=== PATIENT | male | born 1930 | race Caucasian/White ===

== ENCOUNTER → 2017-01-28 | Outpatient (CLI) | payer OTHER, MEDICARE | LOC: CIMAGING 13:30 | PROVIDERS: ATTEND Emergency Medicine | DX: J06.9 Acute upper respiratory infection, unspecified (principal) | CPT/HCPCS: 71020-PO; G0463-PO ==

== ENCOUNTER 2017-02-15 08:37 | Emergency (ER) | payer OTHER, MEDICARE ==
[2017-02-15 08:46] VITALS: BP 158/94; PULSE 96; RESP 18; TEMP 97.3; O2SAT 97
--- NOTE | 2017-02-15 09:04 | EDPHY ---
H & P Time Seen by Provider: 02/15/17 08:42 HPI/ROS: This patient describes a cough this started about 3 weeks ago on around January 25. If he sought his primary care physician Dr. Landry on January 28 with a negative two view chest x-ray at that time diagnosed with URI and cough. However the cough has persisted become more frequent and intense and is not prevented sleep. He has a feeling of heaviness in his chest accompanying this for 2 weeks now that he describes as constant 5/10. He notes no exacerbating factors for this pain the describes as heavy and achy. He has had similar feelings in his chest with prior Respiratory ailments. He also describes associated fatigue. He initially had a sore throat accompanying his symptoms that has resolved. He has persistent coryza and some nasal congestion but no sinus pain. He drove himself a private vehicle for further evaluation of his persistent symptoms. ROS: No high fevers or chills. Positive fatigue no other constitutional symptoms. HEENT: As per HPI. No ear pain. Pulmonary: No pleuritic pain. No significant dyspnea. Cardiovascular: No heart palpitations. No leg swelling or calf pain. No worsening of the feeling of heaviness with exertion. No diaphoresis. GI: He had nausea earlier in the illness that has since resolved. Currently no GI complaints Integumentary: No skin rash Neuro: No complaints 7 point ROS is otherwise negative. Past Medical/Surgical History: GERD. Otherwise healthy. Family history is negative for premature coronary artery disease Social History: Lives with his . Smoking Status: Never smoked Physical Exam: Vital signs are normal with exception of mild hypertension 158/94. General Appearance: Pleasant 87-year-old male appears younger than his stated age. Alert, no distress. Eyes: Pupils equal and round no pallor or injection. ENT,: Nose-yellow discharge bilaterally. No sinus tenderness to percussion. Ears: Clear bilaterally. Mouth: Mucous membranes moist. Respiratory: Faint expiratory wheeze bilaterally with forced exhalation. None with tidal volume rest. Soft Rales at the left base clear with deep breaths. Cardiovascular: Regular rate and rhythm. No murmur gallop rub. No JVD. No peripheral edema or calf tenderness. Gastrointestinal: Abdomen is soft and nontender, no masses, bowel sounds normal. Neurological: GCS 15 Skin: Warm and dry, no rashes. Psychiatric: Mood and affect are normal. DIFFERENTIAL DIAGNOSIS: After history and physical exam differential diagnosis was considered for bronchitis, persistent URI with cough, doubt pneumonia, cardiac ischemic disease with early CHF Constitutional: Initial Vital Signs Temperature (C) 36.3 C 02/15/17 08:39 Heart Rate 96 02/15/17 08:39 Respiratory Rate 18 02/15/17 08:39 Blood Pressure 158/94 H 02/15/17 08:39 O2 Sat (%) 97 02/15/17 08:39 O2 Delivery Mode Room Air Allergies/Adverse Reactions: clarithromycin [From Biaxin] Allergy (Verified 02/15/17 08:46) Penicillins Allergy (Verified 02/15/17 08:47) Sulfa (Sulfonamide Antibiotics) Allergy (Verified 02/15/17 08:47) Home Medications: Medication Instructions Recorded Azithromycin [Zithromax] 250 mg PO DAILY #6 tab 02/15/17 Benzonatate [Tessalon Pearles (RX)] 100 - 200 mg PO TID PRN #20 cap 02/15/17 Levalbuterol Inhaler [Xopenex Hfa 2 puffs IH Q4 PRN #1 mdi 02/15/17 Inhaler] Zantac 02/15/17 MDM/Departure - MDM Diagnostics: 12 lead EKG performed at 9:04 a.m. indication chest heaviness rule out ischemia Sinus rhythm at 86 Intervals: P R of 180, QRS of 90, QTC of 460 [place]: P of 13, QRS of-55, T of 34degrees ST segments: Normal throughout Overall assessment sinus rhythm with left anterior fascicular block. No prior EKGs for comparison. ED Course/Re-evaluation: Discussion: Pleasant 87-year-old male with findings consistent with bronchitis. Given lack of fever or hypoxia or other suggestive findings I do not think he has pneumonia. I think the soft rales that clear with deep breaths the left base correspond with the atelectasis left base noted on chest x -ray on 01/28. While he complains of heavy feeling in his chest he specifies that he has had this with previous URIs and bronchitis. The symptoms are currently minimal and his EKG is benign showing only a left anterior fascicular block which he believes he has had before. Clinically I do not appreciate findings that suggest CHF, PE or other complicating factors. I offered the patient a neb treatment here to see if that decreases the slight heavy feeling in his chest but the patient feels confident that the symptoms are attributable to his bronchitis and given lack of risk factors or red flag findings will hold on further workup at this time. While the patient specifies the Biaxin allergy he reports that he has had Zithromax in the past without any side effects or allergic symptoms. Will treat him with a Xopenex inhaler, Zithromax and Tessalon Perles. He understands the need to return emergency department if he develops worsening or additional symptoms. If his symptoms persist beyond the next week despite this treatment plan will follow up with his primary care physician. - Depart Disposition: Home, Routine, Self-Care Clinical Impression: Acute bronchitis Qualifiers: Bronchitis organism: unspecified organism Qualified Code(s): J20.9 - Acute bronchitis, unspecified Condition: Good Instructions: Acute Bronchitis (ED) Additional Instructions: Diagnosis: Acute bronchitis Plan: Humidifier Xopenex inhaler for cough, wheeze shortness of breath or feeling of tightness Zithromax antibiotic Tessalon Perles to suppress the cough at night so you can sleep. Your symptoms should improve over the next week with treatment plan. Follow up with her primary care physician for any ongoing symptoms Return emergency department if you have any worsening of your symptoms are onset of additional symptoms despite the treatment plan Prescriptions: Azithromycin [Zithromax] 250 mg PO DAILY #6 tab Benzonatate [Tessalon Pearles (RX)] 100 - 200 mg PO TID PRN #20 cap PRN Reason: cough Levalbuterol Inhaler [Xopenex Hfa Inhaler] 2 puffs IH Q4 PRN #1 mdi PRN Reason: Wheezing Referrals: Catarina Almazan MD [Primary Care Provider] - As per Instructions
--- NOTE | 2017-02-15 09:08 | CPEKG ---
Heart Rate: 86 RR Interval: 698 P-R Interval: 180 QRSD Interval: 90 QT Interval: 384 QTC Interval: 460 P Blanch: 13 QRS Blanch: -55 T Wave Blanch: 34 EKG Severity - ABNORMAL ECG - EKG Impression: SINUS RHYTHM EKG Impression: LEFT ANTERIOR FASCICULAR BLOCK Electronically Signed By: Wale Mills 15-Feb-2017 10:19:57
== END 2017-02-15 09:36 | disposition home or self-care (01) ==
LOC: CED 08:37
DX: J20.9 Acute bronchitis, unspecified (principal); R07.89 Other chest pain